=== PATIENT | male | born 1950 | race Caucasian/White ===

== ENCOUNTER 2023-07-30 08:08 | Outpatient (CLI) | payer MEDICARE, BC | END 2023-07-30 08:09 | disposition home or self-care (01) | LOC: NM 08:08 | PROVIDERS: ATTEND Psychiatry & Neurology Neurology | DX: R25.1 Tremor, unspecified (principal); R29.818 Other symptoms and signs involving the nervous system | CPT/HCPCS: 78803; A9584 ×2 ==